=== PATIENT | male | born 1965 | race Caucasian/White ===

== ENCOUNTER → 2017-05-08 | Outpatient (CLI) | payer BC | LOC: BMCIMAGING 14:41 | PROVIDERS: ATTEND Emergency Medicine | DX: K82.4 Cholesterolosis of gallbladder (principal); K76.0 Fatty (change of) liver, not elsewhere classified; K86.9 Disease of pancreas, unspecified; R94.5 Abnormal results of liver function studies; R19.7 Diarrhea, unspecified ==

== ENCOUNTER → 2017-10-22 | Outpatient (CLI) | payer BC | LOC: BMCIMAGING 13:03 | PROVIDERS: ATTEND Family Medicine | DX: Z87.09 Personal history of other diseases of the respiratory system (principal) ==

== ENCOUNTER 2017-11-13 16:57 | Inpatient (IN) | payer BC ==
[2017-11-13] MEDS ORDERED: ONDANSETRON DISINTEGRATING 4 MG TAB PO PRN (20:10)
[2017-11-13] MEDS ORDERED: ONDANSETRON 4 MG/2 ML VIAL IVP PRN (20:10)
[2017-11-13] MEDS ORDERED: ACETAMINOPHEN 325 MG TAB PO PRN (20:10)
[2017-11-13] MEDS ORDERED: TEMAZEPAM 15 MG CAP PO PRN (20:15)
--- NOTE | 2017-11-13 20:42 | GHP ---
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 He has been si ck for about 5 days. He thought it was a viral illness, so he did not really do much. 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 The days have been exceedingly long, 12-13 hours this week because of the . Today at about 3:00 p.m., he just could not work anymore, so he sought care. Chest x-ray there sh owed right middle lobe pneumonia. The patient denies coughing with eating, although he does eat on the run. He drinks alcohol, a coupl e of beers daily, but has not had binge behavior or drank to the point of loss of consciousness. He does not have vomiting. He does not typically cough with eating. He does not smoke cigarettes. REVIEW OF SYSTEMS: Complete 10-point review of systems conducted, negative except as noted in the HP I. PAST MEDICAL HISTORY: Recent right lower lobe pneumonia as well as possible hypertension. ALLERGIES: No known drug allergies. MEDICATIONS: Likely, lisinopril. 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 He walks many miles a day. He drinks a couple of beers at night. No tobacco. FAMILY HISTORY: Reviewed and unremarkable. PHYSICAL EXAMINATION: VITAL SIGNS: Blood pressure 121/84, pulse 101, temp 38.1, breathing 20 times a minute, 94 on room air. GENERAL: No acute distress, fatigue. HEENT: Sclerae anicteric. Orophar ynx clear. Mucous membranes are moist. NECK: Supple without lymphadenopathy or JVD. HEART: S1, S 2. LUNGS: Rhonchi in the right mid and lower lung field with decreased breath sounds. There is no wheezing. HEART: S1, S2. ABDOMEN: Soft, nontender, nondistended. LOWER EXTREMITIES: Without mundo ma. Calves nontender. SKIN: Without rash. LABORATORY DATA: Labs Urgent Care did not draw labs. Chest x-ray showed a right middle lobe pneumon ia. I have discussed the case with the urgent care MD. ASSESSMENT AND PLAN: This is a 52-year-old gentleman who presents with a right middle lobe pneumonia . 1. Pneumonia. The patient is tachycardic. I have concern he may have sepsis. I will check a lacta te and some labs. He received ceftriaxone. I will add azithromycin, and continue the ceftriaxone, a zithromycin through the day. I will also add nebulizers and some cough medicine. 2. Tachycardia. I think the patient has early sepsis. We will go ahead and give him 2 L of lactate d Ringer's and check a lactate. 3. Hypertension. We will follow. He does not need any antihypertensives now. 4. Alcohol use. I suspect this is mild and not playing a role. We will follow for signs of withdra wal. I have not written him for CIWA. 5. Two right-sided pneumonias. We will have Speech Pathology see him. 6. Inpatient status. 7. Prophylaxis Indicated: Low-molecular weight heparin. /[id number]/MODL
[2017-11-13 20:43] LABS: % IMMATURE GRANULYOCYTES 0.4 % (0.0-1.1); ABSOLUTE IMMATURE GRANULOCYTES 0.05 10^3/uL (0.00-0.10); ADD DIFF? NO; ADD MORPH? NO; ADD SCAN? NO; ATYPICAL LYMPHOCYTE FLAG 0 (0-99); FRAGMENT RBC FLAG 0 (0-99); HEMATOCRIT 37.5 % (40.0-51.0); HEMOGLOBIN 13.1 g/dL (13.7-17.5); LEFT SHIFT FLG 10 (0-99); LIPEMIA HEMOLYSIS FLAG 90 (0-99); MEAN CELL HEMOGLOBIN 34.3 pg (27.9-34.1); MEAN CELL HEMOGLOBIN CONCENTR. 34.9 g/dL (32.4-36.7); MEAN CELL VOLUME 98.2 fL (81.5-99.8); MEAN PLATELET VOLUME 10.1 fL (8.7-11.7); PLATELET CLUMPS FLAG 0 (0-99); PLATELET COUNT 175 10^3/uL (150-400); RED BLOOD CELL COUNT 3.82 10^6/uL (4.40-6.38); RED CELL DISTRIBUTION WIDTH 13.3 % (11.5-15.2)
[2017-11-13 20:53] LABS: ANION GAP 12 mEq/L (8-16); CALCIUM 8.5 mg/dL (8.5-10.4); CARBON DIOXIDE 22 mEq/l (22-31); CHLORIDE 97 mEq/L (97-110); GLOMERULAR FILTRATION RATE > 60; GLUCOSE 143 mg/dL (70-100); POTASSIUM 4.2 mEq/L (3.5-5.2); SODIUM 131 mEq/L (134-144)
[2017-11-13] MEDS: guaiFENesin/CODEINE PHOS 10 ML UDCUP PO PRN (21:28)
[2017-11-13] MEDS: LR 1,000 ML IV SCH (21:30)
[2017-11-13] MEDS: AZITHROMYCIN IV 500 MG in D5W 250 ML IV SCH (21:30)
[2017-11-14] MEDS ORDERED: IPRATROPIUM/ALBUTEROL 3 ML DEYVIAL IH SCH
[2017-11-14 03:47] VITALS: RESP 16
[2017-11-14] MEDS: LR 1,000 ML IV SCH (03:49)
[2017-11-14] MEDS: guaiFENesin/CODEINE PHOS 10 ML UDCUP PO PRN (03:51)
[2017-11-14 05:02] LABS: ANION GAP 9 mEq/L (8-16); CALCIUM 8.6 mg/dL (8.5-10.4); CARBON DIOXIDE 27 mEq/l (22-31); CHLORIDE 102 mEq/L (97-110); CREATININE 0.8 mg/dL (0.7-1.3); GLOMERULAR FILTRATION RATE > 60; GLUCOSE 104 mg/dL (70-100); SODIUM 138 mEq/L (134-144)
[2017-11-14] MEDS ORDERED: IPRATROPIUM/ALBUTEROL 3 ML DEYVIAL IH PRN (06:00)
[2017-11-14] MEDS: AZITHROMYCIN IV 500 MG in D5W 250 ML IV SCH (08:09)
[2017-11-14 08:34] VITALS: O2SAT 99
[2017-11-14] MEDS ORDERED: MULTIVITAMINS 1 EACH TAB PO SCH (09:00)
[2017-11-14] MEDS ORDERED: ENOXAPARIN 40 MG/0.4 ML SYR SC SCH (09:00)
[2017-11-14 12:05] VITALS: BP 127/84; PULSE 71; TEMP 98.7
[2017-11-14] MEDS ORDERED: FLU VACC QS 2017-18 (3YR+)/PF 0.5 ML SYR (FLUARIX QUAD) IM ONE (13:03)
--- NOTE | 2017-11-14 15:06 | ASDISCHSUM ---
Discharge Information Plan Status:Home with No Needs Medically Cleared to Leave: Discharge Date:11/14/2017 01:32 PM CM D/C Disposition:Home, Routine, Self-Care ADT D/C Disposition:Home, Routine, Self-Care Projected Discharge Date:11/14/2017 01:32 PM Transportation at D/C: Discharge Delay Reason: Follow-Up Date:11/14/2017 01:32 PM Discharge Slot: Final Diagnosis: Placement Information Patient Contact Information Contact Name:DIAZ Relationship: Address:[address] City:[place] Alternate Phone: [facility]/Zip Code:[place] [address] Email: Financial Information Financial Class:HMO and PPO Plans Primary Plan Desc:[employer] Primary Plan Number:[id number] Secondary Plan Desc: Secondary Plan Number: Assessment Information Intervention Information
--- NOTE | 2017-11-14 17:16 | GDS ---
[f rep st] DISCHARGE SUMMARY DISCHARGE DIAGNOSES: Include: 1. Community-acquired pneumonia. 2. Leukocytosis secondary to community-acquired pneumonia. 3. Hypovolemic hyponatremia. 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 For details of patient's initial presentation, please see the History and Physical dated . CONSULTATIVE SERVICES: None. PROCEDURES: None. HOSPITAL COURSE BY ISSUE: 1. Community-acquired pneumonia. The patient was admitted, initiated on IV antibiotics. Blood cult ures were not obtained from the emergency department. Empiric treatment was initiated with azithromy francis and ceftriaxone. The patient had resolution of his hypoxia the morning after admission, and is b eing transitioned to oral levofloxacin to complete a full 7-day course of antibiotics. 2. Hypovolemic hyponatremia. Patient's serum sodium improved from 131 to 138 after fluid resuscitat ion. He is taking normal p.o. on the day of disposition. MEDICATIONS AT THE TIME OF TRANSFER: Please reference the med rec printed on 11/14/2017. PENDING STUDIES: None. FOLLOWUP APPOINTMENTS: Include with his primary care provider next week for his first post dispositi on followup, after the conclusion of his antibiotic therapy. TIME SEEN: I spent greater than 30 minutes in the planning and coordination of this discharge. /[id number]/MODL
== END 2017-11-14 13:32 | disposition home or self-care (01) | DRG 194 ==
LOC: F3E 19:08 → PREOBSVTOIN 19:11
PROVIDERS: ADMIT Internal Medicine; ATTEND Internal Medicine
DX: J18.8 Other pneumonia, unspecified organism (principal); E87.1 Hypo-osmolality and hyponatremia; E86.1 Hypovolemia; I10 Essential (primary) hypertension
CPT/HCPCS: G0008; J0456; J0696; J1650

== ENCOUNTER → 2017-11-13 | Outpatient (CLI) | payer BC | LOC: BMCIMAGING 16:06 | PROVIDERS: ATTEND Emergency Medicine | DX: J18.9 Pneumonia, unspecified organism (principal) ==

== ENCOUNTER → 2017-12-17 | Outpatient (CLI) | payer BC | LOC: BMCIMAGING 13:17 | PROVIDERS: ATTEND Physician Assistant | DX: J18.9 Pneumonia, unspecified organism (principal); J98.09 Other diseases of bronchus, not elsewhere classified ==

== ENCOUNTER → 2018-01-01 | Outpatient (CLI) | payer BC | LOC: BMCIMAGING 12:26 | PROVIDERS: ATTEND Emergency Medicine | DX: J40 Bronchitis, not specified as acute or chronic (principal) ==

== ENCOUNTER → 2018-08-20 | Outpatient (CLI) | payer BC | LOC: BMCIMAGING 07:11 | PROVIDERS: ATTEND Physician Assistant | DX: R16.0 Hepatomegaly, not elsewhere classified (principal); K76.0 Fatty (change of) liver, not elsewhere classified; K82.4 Cholesterolosis of gallbladder ==